=== PATIENT | female | born 1970 | race Caucasian/White ===

== ENCOUNTER 2025-03-31 06:29 | Day surgery (SDC) | payer OTHER ==
[2025-03-26 11:16] VITALS: BMI 30.2
[2025-03-31 09:39] VITALS: RESP 18
[2025-03-31] MEDS ORDERED: MIDAZOLAM HCL 2 MG/2 ML SINGLE DOSE VIAL ONE (14:08)
[2025-03-31] MEDS ORDERED: ONDANSETRON 4 MG/2 ML VIAL ONE (14:08)
[2025-03-31 16:09] VITALS: BP 123/67; PULSE 77; TEMP 97.8
== END 2025-03-31 15:25 | disposition home or self-care (01) ==
LOC: JASU-SURG 06:29
PROVIDERS: ATTEND Urology
PROC: 0TF4XZZ Fragmentation in Left Kidney Pelvis, External Approach (ICD-10-PCS; principal; 2025-03-31 14:30)
DX: N20.0 Calculus of kidney (principal)
CPT/HCPCS: 81025